=== PATIENT | female | born 1990 | race Asian ===

== ENCOUNTER 2017-05-24 00:05 | Inpatient (IN) | payer SELFPAY ==
[~2017-05-24] VITALS: Ht 160 cm; Wt 69.4 kg
[2017-05-24] MEDS ORDERED: NALBUPHINE 10 MG/ML AMP IVP PRN (00:30)
[2017-05-24] MEDS ORDERED: PROMETHAZINE 25 MG/ML VIAL IVP PRN (00:30)
[2017-05-24] MEDS ORDERED: OXYTOCIN 20 UNITS in LACTATED RINGERS 1,000 ML IV SCH (00:30)
[2017-05-24] MEDS ORDERED: MISOPROSTOL 25 MCG TAB VG PRN (00:30)
[2017-05-24] MEDS ORDERED: OXYTOCIN 10 UNITS/ML VIAL IM SCH (00:30)
[2017-05-24] MEDS ORDERED: BUPIVACAINE/DEXT 0.75% SPINAL 2 ML AMP INJ SCH (00:40)
[2017-05-24] MEDS: LACTATED RINGERS 1,000 ML IV SCH ×3 (01:24→06:00)
[2017-05-24] MEDS ORDERED: MISOPROSTOL 25 MCG TAB ONE ×2 (01:35→09:33)
[2017-05-24 01:40] LABS: APPEARANCE,URINE CLEAR (CLEAR); BILIRUBIN,URINE NEGATIVE (NEGATIVE); BLOOD, URINE NEGATIVE (NEGATIVE); COLOR,URINE YELLOW (YELLOW); LEUKOCYTE ESTERASE ,URINE NEGATIVE (NEGATIVE); NITRITE, URINE NEGATIVE (NEGATIVE); PH,URINE 6.5 (5.0-9.0); UGLUCOSE NEGATIVE (NEGATIVE)
[2017-05-24 01:40] LABS: BASOPHILS # (AUTO) 0.1 K/uL (0.00-0.22); BASOPHILS % (AUTO) 1.2 % (0.0-2.0); EOSINOPHILS # (AUTO) 0.1 K/uL (0-0.4); EOSINOPHILS % (AUTO) 0.8 % (0.0-4.0); HEMATOCRIT 36.8 % (36-48); HEMOGLOBIN 12.3 g/dL (12.0-16.0); LYMPHOCYTES % (AUTO) 20.1 % (20.5-51.1); MEAN CORPUSCULAR HEMOGLOBIN 30 pg (27-31); MEAN CORPUSCULAR HGB CONC 33 g/dL (33-37); MEAN CORPUSCULAR VOLUME 89 fL (80-94); MONOCYTES # (AUTO) 0.8 K/uL (0.8-1.0); MONOCYTES % (AUTO) 7.7 % (1.7-9.3); NEUTROPHILS % (AUTO) 70.2 % (42.2-75.2); PLATELET COUNT (AUTO) 175 K/uL (140-450); RED BLOOD CELL COUNT(AUTO) 4.13 MIL/uL (4.20-5.40); RED CELL DISTRIBUTION WIDTH 13.4 % (11.6-13.7)
[2017-05-24] MEDS ORDERED: CALC500C17 PO (02:12)
[2017-05-24] MEDS ORDERED: VITA1TAB44 PO (02:12)
[2017-05-24] MEDS ORDERED: DOCO100C PO (02:12)
[2017-05-24] MEDS ORDERED: INFLUENZA VIRUS VACCINE QUAD 0.5 ML SYR IMVAC SCH (02:15)
[2017-05-24 02:16] VITALS: BP 127/58
[2017-05-24] MEDS ORDERED: PROMETHAZINE 25 MG/ML VIAL ONE (06:51)
[2017-05-24] MEDS ORDERED: NALBUPHINE HYDROCHLORIDE 10 MG/ML VIAL ONE (06:51)
[2017-05-24] MEDS ORDERED: ROPIVACAINE 0.2%/NS PREMIX 250 ML EPI ONE ×2 (11:41→13:04)
[2017-05-24] MEDS ORDERED: ROPIVACAINE 0.2%/NS PREMIX 250 ML EPI SCH (12:00)
[2017-05-25] MEDS ORDERED: NALBUPHINE HYDROCHLORIDE 10 MG/ML VIAL ONE (06:51)
[2017-05-25] MEDS ORDERED: PROMETHAZINE 25 MG/ML VIAL ONE (06:52)
[2017-05-25] MEDS ORDERED: ROPIVACAINE 0.2%/NS PREMIX 250 ML EPI ONE (07:41)
[2017-05-25] MEDS ORDERED: AMPICILLIN 2,000 MG in NACL 0.9% 100 ML IV SCH (08:00)
[2017-05-25] MEDS ORDERED: MORPHINE PRES FREE 10 MG/10 ML AMP IV ONE (08:10)
[2017-05-25] MEDS ORDERED: MIDAZOLAM 2 MG/2 ML VIAL ONE (08:12)
[2017-05-25] MEDS ORDERED: TRIAMCINOLONE 40 MG/ML 5ML VIAL ONE (08:13)
[2017-05-25] MEDS ORDERED: OXYTOCIN 10 UNITS/ML VIAL ONE (08:13)
[2017-05-25] MEDS ORDERED: BUPIVACAINE-MPF 0.75% 10 ML VIAL INJ ONE (08:40)
[2017-05-25] MEDS ORDERED: oxyCODONE/APAP 5/325 MG 1 TAB TAB PO PRN ×2 (08:50→09:20)
[2017-05-25] MEDS ORDERED: IBUPROFEN 800 MG TAB PO PRN (08:50)
[2017-05-25] MEDS ORDERED: SIMETHICONE 80 MG TAB.CHEW PO PRN ×2 (08:50→09:20)
[2017-05-25] MEDS ORDERED: METHYLERGONOVINE 0.2 MG/ML AMP IM PRN (08:50)
[2017-05-25] MEDS ORDERED: HYDROcodone/APAP 5/325 MG 1 TAB TAB PO PRN ×2 (08:50→09:20)
[2017-05-25] MEDS ORDERED: MEASLES, MUMPS, AND RUBELLA 1 VIAL SQVAC PRN (08:50)
[2017-05-25] MEDS ORDERED: TRIMETHOBENZAMIDE 200 MG/2 ML SYR IM PRN (08:50)
[2017-05-25] MEDS ORDERED: TEMAZEPAM 15 MG CAP PO PRN ×2 (08:50→09:20)
[2017-05-25] MEDS ORDERED: OXYTOCIN 20 UNITS in LACTATED RINGERS 1,000 ML IV SCH ×2 (09:06→09:18)
[2017-05-25] MEDS ORDERED: METHYLERGONOVINE 0.2 MG/ML AMP ONE (09:08)
[2017-05-25] MEDS ORDERED: MEPERIDINE 25 MG/ML SYR IVP PRN (09:10)
[2017-05-25] MEDS ORDERED: NALBUPHINE 10 MG/ML AMP IVP PRN (09:10)
[2017-05-25] MEDS ORDERED: ONDANSETRON 4 MG/2 ML VIAL IVP PRN ×2 (09:10)
[2017-05-25] MEDS ORDERED: diphenhydrAMINE 50 MG/ML VIAL IVP PRN ×2 (09:10)
[2017-05-25] MEDS ORDERED: NALOXONE 0.4 MG/ML VIAL IVP PRN ×3 (09:10)
[2017-05-25] MEDS ORDERED: HYDROmorphone 1 MG/ML AMP IVP PRN (09:10)
[2017-05-25] MEDS ORDERED: OXYTOCIN 20 UNITS/LR PREMIX 1,000 ML IV ONE (09:23)
[2017-05-25] MEDS ORDERED: diphenhydrAMINE 50 MG/ML VIAL ONE (09:23)
[2017-05-25] MEDS ORDERED: ONDANSETRON 4 MG/2 ML VIAL ONE (09:36)
--- NOTE | 2017-05-25 10:04 | NUR ---
PATIENT HAS BEEN SCREENED AND CATEGORIZED LOW NUTRITION RISK. PATIENT WILL BE SEEN WITHIN 7 DAYS OF ADMISSION. 05/30/[address]
[2017-05-25] MEDS: KETOROLAC 30 MG/ML VIAL IM/IVP SCH ×2 (12:07→18:06)
[2017-05-25] MEDS ORDERED: AMPICILLIN 2,000 MG VIAL ONE ×4 (12:42→23:56)
[2017-05-25] MEDS ORDERED: CLINDAMYCIN 900 MG in DEXTROSE 5% 100 ML IV SCH (13:00)
[2017-05-25] MEDS: AMPICILLIN 2,000 MG in NACL 0.9% 100 ML IV SCH ×2 (16:40→20:31)
[2017-05-25] MEDS: OXYTOCIN 20 UNITS in LACTATED RINGERS 1,000 ML IV SCH (18:09)
[2017-05-25] MEDS: SENNA 8.6 MG TAB PO SCH (20:31)
[2017-05-25] MEDS: CLINDAMYCIN 900 MG in DEXTROSE 5% 100 ML IV SCH (21:33)
[2017-05-25] MEDS: DOCUSATE SOD/SENNA 50/8.6 MG 1 TAB PO SCH (21:34)
[2017-05-26] MEDS: AMPICILLIN 2,000 MG in NACL 0.9% 100 ML IV SCH ×4 (00:15→12:37)
[2017-05-26] MEDS: KETOROLAC 30 MG/ML VIAL IM/IVP SCH ×2 (00:16→06:04)
[2017-05-26] MEDS: OXYTOCIN 20 UNITS in LACTATED RINGERS 1,000 ML IV SCH (02:00)
[2017-05-26] MEDS ORDERED: AMPICILLIN 2,000 MG VIAL ONE ×3 (03:25→12:36)
[2017-05-26] MEDS: CLINDAMYCIN 900 MG in DEXTROSE 5% 100 ML IV SCH (05:16)
[2017-05-26 06:39] LABS: HEMATOCRIT 25.9 % (36-48); MEAN CORPUSCULAR HEMOGLOBIN 31 pg (27-31); MEAN CORPUSCULAR HGB CONC 35 g/dL (33-37); MEAN CORPUSCULAR VOLUME 90 fL (80-94); PLATELET COUNT (AUTO) 145 K/uL (140-450); RED BLOOD CELL COUNT(AUTO) 2.89 MIL/uL (4.20-5.40); RED CELL DISTRIBUTION WIDTH 13.7 % (11.6-13.7); WHITE BLOOD COUNT (AUTO) 17.8 K/uL (4.8-10.8)
[2017-05-26 07:37] LABS: LYMPHOCYTES % (MANUAL) 10 % (20-46); MONOCYTES % (MANUAL) 3 % (5-12)
[2017-05-26] MEDS ORDERED: AMPICILLIN 2,000 MG in NACL 0.9% 100 ML IV SCH (12:00)
[2017-05-26] MEDS ORDERED: CLINDAMYCIN 900 MG in DEXTROSE 5% 100 ML IV SCH (13:00)
[2017-05-26] MEDS: DOCUSATE SOD/SENNA 50/8.6 MG 1 TAB PO SCH (21:09)
[2017-05-26] MEDS: SENNA 8.6 MG TAB PO SCH (21:10)
[2017-05-27] MEDS ORDERED: FERROUS SULFATE 325 MG TABEC PO SCH (08:00)
[2017-05-27] MEDS ORDERED: IBUP-2213 PO (11:26)
== END 2017-05-27 16:00 | disposition home or self-care (01) | DRG 766 ==
LOC: MLD 00:05 → MFCC 05-25 10:00
PROVIDERS: ADMIT Obstetrics & Gynecology; ATTEND Obstetrics & Gynecology
PROC: 3E0R3BZ Introduction of Anesthetic Agent into Spinal Canal, Percutaneous Approach (ICD-10-PCS; 2017-05-24)
PROC: 00HU33Z Insertion of Infusion Device into Spinal Canal, Percutaneous Approach (ICD-10-PCS; 2017-05-24)
PROC: 3E0P7VZ Introduction of Hormone into Female Reproductive, Via Natural or Artificial Opening (ICD-10-PCS; 2017-05-25)
PROC: 3E0234Z Introduction of Serum, Toxoid and Vaccine into Muscle, Percutaneous Approach (ICD-10-PCS; 2017-05-25)
PROC: 10D00Z1 Extraction of Products of Conception, Low, Open Approach (ICD-10-PCS; principal; 2017-05-25 08:15)
PROC: 3E0234Z Introduction of Serum, Toxoid and Vaccine into Muscle, Percutaneous Approach (ICD-10-PCS; 2017-05-26)
DX: O63.1 Prolonged second stage (of labor) (principal); O64.0XX0 Obstructed labor due to incomplete rotation of fetal head, not applicable or unspecified; O62.1 Secondary uterine inertia; O69.81X0 Labor and delivery complicated by cord around neck, without compression, not applicable or unspecified; Z37.0 Single live birth; Z3A.39 39 weeks gestation of pregnancy; Z23 Encounter for immunization
CPT/HCPCS: 36415; 51702; 59200; 81003; 85025; 86592; 86886; 86900; 86901; 90658; 90707; 90715; J0290; J0690; J1200; J1885; J2210; J2250; J2270; J2300; J2405; J2550; J2590; J2795; J3301; J3490; J7060; J7120